=== PATIENT | male | born 1945 | race African-American/Black ===

== ENCOUNTER → 2016-12-25 | Outpatient (CLI) | payer MEDICARE, MEDICAID | END | disposition home or self-care (01) | LOC: PCVCCLINIC 12:18 | PROVIDERS: ATTEND Internal Medicine Cardiovascular Disease | DX: E78.5 Hyperlipidemia, unspecified (principal); I42.9 Cardiomyopathy, unspecified | CPT/HCPCS: 93005; G0463 ==

== ENCOUNTER → 2017-07-15 | Outpatient (CLI) | payer MEDICARE, MEDICAID | END | disposition home or self-care (01) | LOC: PCVCCLINIC 15:37 | PROVIDERS: ATTEND Internal Medicine Cardiovascular Disease | DX: I42.9 Cardiomyopathy, unspecified (principal); K21.9 Gastro-esophageal reflux disease without esophagitis; I12.9 Hypertensive chronic kidney disease with stage 1 through stage 4 chronic kidney disease, or unspecified chronic kidney disease; N18.9 Chronic kidney disease, unspecified; B19.10 Unspecified viral hepatitis B without hepatic coma; B19.20 Unspecified viral hepatitis C without hepatic coma; Z79.899 Other long term (current) drug therapy; Z87.891 Personal history of nicotine dependence | CPT/HCPCS: 80061; 93005; G0463 ==

== ENCOUNTER → 2018-09-25 | Outpatient (CLI) | payer MEDICARE, MEDICAID ==
--- NOTE | 2018-09-25 16:36 | PCVCIMAG ---
APPROVED REPORT Study performed: 09/25/2018 14:09:48 Exam: Stress Echocardiogram Indication: Cardiomyopathy, Hyperlipidemia, Hypertension Patient Location: Echo lab Stress Nurse: Yamila Wu RN Status: routine Ht: 5 ft 10 in Rhythm: NSR Medical History Medical History: Renal Disease Procedure The patient underwent an Exercise Stress Test using the Marcos Protocol. Blood pressure, heart rate, and EKG were monitored. An Echocardiogram was performed by meter technician in four stages in quad fashion. At peak stress, four selected images were obtained and placed side by side with resting images for comparison. Stress Test Details Stress Test: Exercise stress testing was performed using a Marcos protocol. HR Resting HR: 98 bpmMax Heart Rate (APMHR): 149 bpm Max HR Achieved: 151 bpmTarget HR (85% APMHR): 126 bpm % of APMHR: 101 Recovery HR: 107 bpm HR response to stress: Normal HR response to stress BP Resting BP: 120/62 mmHg Max BP: 198/90 mmHg Recovery BP: 156/75 mmHg BP response to stress: Abnormal hypertensive response to stress. ECG Resting ECG: Sinus Rhythm Stress ECG: Sinus Rhythm Arrhythmia: VPC's Recovery ECG: Sinus Rhythm Recovery Arrhythmia: VPC's Clinical Reason for Termination: Dyspnea, Maximal Effort Exercise duration: 2 min 50 sec Highest Stage Achieved: Stage 1: 1.7 mph at 10% grade. Exercise capacity: 4.60 METs Overall Exercise Capacity for Age: Poor Stress ECG Conclusion ECG: Non-ischemic Pre-Stress Echo The resting Echocardiogram showed normal left ventricular contractility with an estimated Ejection Fraction of about >55%. Normal wall motion in all segments on baseline images. Post-Stress Echo The stress Echocardiogram showed normal left ventricular contractility with an estimated Ejection Fraction of about 60-65%. Normal augmentation of wall motion in all segments on post stress images. Clinical No clinical or ECG evidence for ischemia. Conclusion Clinical Response: Non-ischemic Exercise Capacity: Below Average Stress ECG Response: Non-ischemic Stress Echo Images: Non-ischemic The left ventricle is normal in size and wall thickness in both the rest and stress images. Exercise was stopped due to significant dyspnea and maximum heart rate. Other Information Study Quality: Good <Conclusion> The left ventricle is normal in size and wall thickness in both the rest and stress images. Exercise was stopped due to significant dyspnea and maximum heart rate.
== END | disposition home or self-care (01) ==
LOC: PCVCIMAG 14:01
PROVIDERS: ATTEND Internal Medicine Cardiovascular Disease
DX: I10 Essential (primary) hypertension (principal); E78.5 Hyperlipidemia, unspecified; I42.9 Cardiomyopathy, unspecified; R06.00 Dyspnea, unspecified; Z88.8 Allergy status to other drugs, medicaments and biological substances
CPT/HCPCS: 93325; 93351

== ENCOUNTER → 2019-03-31 | Outpatient (CLI) | payer MEDICARE, MEDICAID ==
--- NOTE | 2019-03-31 16:20 | PCVCIMAG ---
APPROVED REPORT Laterality: Bilateral Indications Bruit Doppler Spectral Velocity Analysis PSV / EDVPSV / EDV ECA (R) 83 / 10 cm/sECA (L) 65 / 8 cm/s dICA (R) 73 / 26 cm/sdICA (L) 65 / 26 cm/s Cherise (R) 59 / 21 cm/smICA (L) 79 / 22 cm/s pICA (R) 74 / 16 cm/spICA (L) 73 / 14 cm/s Bulb (R) 79 / 18 cm/sBulb (L) 82 / 21 cm/s dCCA (R) 98 / 19 cm/sdCCA (L) 94 / 18 cm/s mCCA (R) 91 / 16 cm/smCCA (L) 90 / 21 cm/s Vert (R) 42 / 10 cm/sVert (L) 36 / 0 cm/s ICA/CCA 0.76ICA/CCA 0.84 Basic Measurements Blood Pressure: Pulses: Right Left RightLeft Brachial(Sitting) 106/62mmHgTemporal Real Time B-Mode Imaging Vert. (R)AntegradeVert. (L)Antegrade Findings The right carotid bulb has minimal plaque. The right proximal internal carotid artery shows no significant stenosis. The right common carotid artery shows no significant stenosis. The right external carotid artery shows no significant stenosis. The left carotid bulb has mild calcified plaque. The left proximal internal carotid artery shows no significant stenosis. The left common carotid artery shows no significant stenosis. The left external carotid artery shows no significant stenosis. Conclusion 1. Mild bilateral plaquing without significant stenosis. 2. Antegrade vertebral flow.
== END | disposition home or self-care (01) ==
LOC: PCVCIMAG 13:23
PROVIDERS: ATTEND Internal Medicine Cardiovascular Disease
DX: I65.23 Occlusion and stenosis of bilateral carotid arteries (principal); I42.9 Cardiomyopathy, unspecified; E78.00 Pure hypercholesterolemia, unspecified; N18.9 Chronic kidney disease, unspecified; Z87.891 Personal history of nicotine dependence
CPT/HCPCS: 36415; 80061; 93005; 93880; G0463